=== PATIENT | female | born 1985 | race African-American/Black ===

== ENCOUNTER 2022-10-26 15:22 | Outpatient (CLI) | payer OTHER, SELFPAY ==
--- NOTE | ~2022-10-26 | US_ITS ---
EXAMINATION: US OB <=14 wk fetus w TV DATE: 10/26/2022 16:05 INDICATION: Gestational dating TECHNIQUE: Real-time transabdominal and transvaginal obstetric ultrasound. FINDINGS: No prior studies for comparison. There is an intrauterine gestational sac measuring 2.3 cm corresponding to 7 week 2 day gestation. No pole or yolk sac seen. Small subchorionic hemorrhage. Uterine fibroid is identified posterior aspect of the uterus measuring 3.5 cm. Ovaries within normal limits. IMPRESSION: 1. Intrauterine gestational sac measures 2.3 cm corresponding to 7 week 2 day gestation. No evidence for pole or yolk sac. Findings compatible with blighted ovum. Recommend follow-up with serial q uantitative beta-hCG levels and ultrasound as clinically indicated. 2: Small subchorionic hemorrhage measuring 3.1 x 0.3 x 1.5 cm. Reviewed, dictated and finalized at location B. IMPRESSION: 1. Intrauterine gestational sac measures 2.3 cm corresponding to 7 week 2 day g estation. No evidence for pole or yolk sac. Findings compatible with blig hted ovum. Recommend follow-up with serial quantitative beta-hCG levels and ult rasound as clinically indicated. 2: Small subchorionic hemorrhage measuring 3.1 x 0.3 x 1.5 cm.
== END 2022-10-26 15:23 | disposition home or self-care (01) ==
PROVIDERS: PCP Internal Medicine; Visit Provider Registered Nurse
DX: Z34.90 Encounter for supervision of normal pregnancy, unspecified, unspecified trimester (principal); Z3A.00 Weeks of gestation of pregnancy not specified
CPT/HCPCS: 76801; 76817

== ENCOUNTER 2022-10-27 16:45 | Outpatient (CLI) | payer OTHER, SELFPAY | END 2022-10-27 16:46 | disposition home or self-care (01) | LOC: ANHLAB 16:47 | PROVIDERS: PCP Internal Medicine; Visit Provider Obstetrics & Gynecology | DX: O36.80X0 Pregnancy with inconclusive fetal viability, not applicable or unspecified (principal); Z3A.00 Weeks of gestation of pregnancy not specified | CPT/HCPCS: 36415; 84702 ==

== ENCOUNTER 2022-10-29 16:43 | Outpatient (CLI) | payer OTHER, SELFPAY | END 2022-10-29 16:44 | disposition home or self-care (01) | LOC: ANHLAB 16:44 | PROVIDERS: PCP Internal Medicine; Visit Provider Obstetrics & Gynecology | DX: O36.80X0 Pregnancy with inconclusive fetal viability, not applicable or unspecified (principal); Z3A.00 Weeks of gestation of pregnancy not specified | CPT/HCPCS: 36415; 84702 ==

== ENCOUNTER 2022-11-03 10:30 | Outpatient (CLI) | payer OTHER, SELFPAY ==
--- NOTE | ~2022-11-03 | US_ITS ---
EXAMINATION: US OB <=14 wk fetus w TV DATE: 11/03/2022 11:20 INDICATION: Abnormal ultrasound findings. TECHNIQUE: Real-time transabdominal and transvaginal obstetric ultrasound. FINDINGS: Comparison to ultrasound dated 10/26/2022 The uterus measures 11.7 x 6.5 x 7 cm. There is an intrauterine gestational sac without significant d ecidual reaction. The sac is slightly irregular. No pole or yolk sac are seen. No heart m otions detected. No definite subchorionic hematoma seen on the current study. Mean sac diameter corre sponds to 7 week 3 day gestation. The ovaries are not visualized. IMPRESSION: 1. Intrauterine gestational sac corresponding to 7 week 3 day gestation without evidence for po le or yolk sac, compatible with blighted ovum. Recommend follow-up with serial quantitative beta-hCG levels and ultrasound as clinically indicated. Reviewed, dictated and finalized at location L. IMPRESSION: 1. Intrauterine gestational sac corresponding to 7 week 3 day gestation without evidence for pole or yolk sac, compatible with blighted ovum. Recommend follow-up with serial quantitative beta-hCG levels and ultrasound as clinically indicated.
== END 2022-11-03 10:31 | disposition home or self-care (01) ==
LOC: ANHIMG 10:31
PROVIDERS: PCP Internal Medicine; Visit Provider Obstetrics & Gynecology
DX: O28.3 Abnormal ultrasonic finding on antenatal screening of mother (principal); Z3A.01 Less than 8 weeks gestation of pregnancy
CPT/HCPCS: 76801; 76817

== ENCOUNTER 2022-11-03 15:37 | Outpatient (CLI) | payer OTHER, SELFPAY | END 2022-11-03 15:38 | disposition home or self-care (01) | LOC: ANHLAB 15:39 | PROVIDERS: PCP Internal Medicine; Visit Provider Obstetrics & Gynecology | DX: Z87.59 Personal history of other complications of pregnancy, childbirth and the puerperium (principal) | CPT/HCPCS: 36415; 86850; 86900; 86901 ==

== ENCOUNTER 2022-11-20 16:31 | Outpatient (CLI) | payer OTHER, SELFPAY ==
[2022-11-20 17:34] LABS: Beta HCG Quantitative 114.42 mIU/ML
== END 2022-11-20 16:32 | disposition home or self-care (01) ==
LOC: ANHLAB 16:33
PROVIDERS: PCP Internal Medicine; Visit Provider Obstetrics & Gynecology
DX: O03.9 Complete or unspecified spontaneous abortion without complication (principal); Z3A.00 Weeks of gestation of pregnancy not specified
CPT/HCPCS: 36415; 84702

== ENCOUNTER 2022-12-22 12:09 | Outpatient (CLI) | payer OTHER, SELFPAY ==
[2022-12-22 22:58] LABS: Beta HCG Quantitative 3.18 mIU/ML
== END 2022-12-22 12:10 | disposition home or self-care (01) ==
LOC: ANHLAB 12:10
PROVIDERS: PCP Internal Medicine; Visit Provider Obstetrics & Gynecology
DX: O03.9 Complete or unspecified spontaneous abortion without complication (principal); Z3A.00 Weeks of gestation of pregnancy not specified
CPT/HCPCS: 36415; 84702